=== PATIENT | female | born 1935 | race African-American/Black ===

== ENCOUNTER 2022-02-11 11:20 | Inpatient (IN) | payer OTHER ==
--- OUTSIDE RECORDS SUMMARY | 2022-02-11 11:25 | XMS REPORT | Continuity of Care Document ---
:1935 Author Organization [facility] t Address [address] [place] [address] Care Team Providers Name Role Phone Rafa Clark DO Primary Care Physician [phone] Payers Payer Name Policy Type Policy Number Effective Date Expiration Date S ource Problems Condition Condition Condition Status Onset Resolution Last Treating Co mments Source Name Details Category Date Date Treatment Clinician Date No known No known Disease Metho di active active st problems problems Hospit a l Allergies, Adverse Reactions, Alerts Allergy Allergy Status Severity Reaction(s) Onset Inactive Treating Comm ents Source Name Type Date Date Clinician No Known DA Active U 2020- [facility]- Clear s 00:00: [place] 00 [facility] No Known DA Active U 2020- [facility] Allergie 2- Clear s 00:00: [place] 00 [facility] No Known DA Active U 2020- [facility] Allergie 2- Clear s 00:00: [place] 00 [facility] No Known DA Active U 2020- [facility] Allergie 2- Clear s 00:00: [place] 00 [facility] Social History Social Habit Start Date Stop Date Quantity Comments Source History of Current smoker [facility] tobacco use [facility] Alcohol intake 2018-06-25 2018-06-25 [facility] 00:00:00 [facility]:00:00 Hospital Tobacco use and 2018-06-24 2018-06-24 Smokeless tobacco [facility] exposure 00:00:00 00:00:00 non-user Hospital Sex Assigned At [birth year] [facility] 00:00:00 00:[facility]:00 Hospital Smoking Status Start Date Stop Date Source Ex-smoker 2018-06-24 00:00:00 2018-06-24 [facility] Medications Ordered Filled Start Stop Current Ordering Indication Dosage Frequency Signature Comments Components Source Medication Medication Date Date Medication? Clinician (SIG) Name Name amLODIPine Yes 5mg QD Take 5 mg Me thodi (NORVASC) 5 -[address] mg tablet 17:34: daily. Hospit a 18 l aspirin 81 Yes 81mg QD Take 81 mg M ethodi mg chewable -[address] tablet 17:34: daily. Hospita 18 l bisacodyl 5 Yes 10mg QD Take 10 mg [facility] mg tablet -[address] 17:34: daily. Hospita 18 Takes 5 mg l 2 TABS. (10 mg) clonIDINE Yes .3mg QD Take 0.3 Meth booker HCl 1-[address] (CATAPRES) 17:34: mouth Hospit a 0.3 MG 18 every l tablet morning. clonIDINE 2019- Yes .3mg Q.5D Take 0.3 Meth booker HCl 1-[address] (CATAPRES) 17:34: mouth 2 Hosp mike 0.3 MG 18 (two) l tablet times a day as needed for high blood pressure (BP>140). carvedilol Yes 25mg Q.5D Take 25 mg M ethodi (COREG) 25 1-[address] MG tablet 17:34: (two) Hospita 18 times a l day as needed (BP>140). cranberry 2018- Yes 1{tbl} QD Take 1 Meth booker fruit 1-[address] extract 17:34: mouth Hospita (CRANBERRY 18 daily. l ORAL) folic 2018-0 Yes 1{tbl} QD Take 1 [facility]i acid/vit B 1-[address] complex and 17:34: mouth Hospi ta C 18 daily. l (DIALYVITE 800 ORAL) lactulose Yes 10g Q24H Take 10 g Met hodi 10 gram/15 -[address] mL (15 mL) 17:34: daily as Hos quiana solution 18 needed l (constipat ion). furosemide 0 Yes 40mg QD Take 40 mg M ethodi (LASIX) 40 1-[address] mg tablet 17:34: daily. Hospit a 18 l lisinopril Yes 40mg QD Take 40 mg M ethodi (PRINIVIL,Z 1-[address] ESTRIL) 40 17:34: every Hospit a mg tablet 18 morning. l sevelamer Yes 800mg Q.[id number] Take 800 [facility] (RENVELA) 1-[id number] 800 mg 17:34: 3D mouth 3 Hospita tablet 18 (three) l times a day with meals. lidocaine-p Yes 1{appli Q.[id number] Apply 1 Methodi rilocaine 1-17 cation} [id number] applicatio st (EMLA) 17:34: 3W n Hospita 2.5-2.5 % 18 topically l cream 3 (three) times a week. Tues., Thurs., Sat. Before dialysis amino 0 Yes 30mL QD Take 30 mL Method i ac/protein 1-[address] hydr/whey 17:34: daily. 1 Hosp mike pro 18 oz (30 ml) l (LIQUACEL ORAL) allopurinol Yes 100mg QD Take 100 M ethodi (ZYLOPRIM) 1-[address] 100 MG 17:34: mouth Hospita tablet 18 daily. l Procedures Procedure Date / Time Performed Performing Clinician [facility] e [id number] 2020-06-05 00:00:00 ACHKA [facility] [id number] 2020-06-02 00:00:00 RATVI [facility] [id number] 2020-06-02 00:00:00 RATVI [facility] [id number] 2020-06-02 00:00:00 RATVI [facility] [id number] 2020-06-02 00:00:00 RATVI [facility] [id number] 2020-06-02 00:00:00 RATVI [facility] [id number] 2020-06-02 00:00:00 RATVI [facility] [id number] 2020-06-02 00:00:00 ACHKA [facility] [id number] 2020-05-30 00:00:00 CHEZU [facility] [id number] 2020-05-30 00:00:00 CHEZU [facility] [id number] 2020-05-30 00:00:00 CHEZU [facility] Plan of Care Planned Activity Planned Date Details Comments Source Future Scheduled 2022-02-11 HEPATITIS B VACCINES Met [facility] Test 11:24:06 (1 of 3 - 3-dose series) [code = HEPATITIS B VACCINES (1 of 3 - 3-dose series)] Future Scheduled 2022-02-11 COVID-19 VACCINE (#1) [facility] Test 11:24:06 [code = COVID-19 VACCINE (#1)] Future Scheduled 2022-02-11 SHINGLES VACCINES ([address] [facility] Test 11:24:06 of 2) [code = SHINGLES VACCINES (1 of 2)] Future Scheduled 2022-02-11 65+ [facility]06 VACCINE (1 - PCV) [code = 65+ PNEUMOCOCCAL VACCINE (1 - PCV)] Future Scheduled 2022-02-11 INFLUENZA VACCINE Method [facility] Test 11:24:06 [code = INFLUENZA VACCINE] Encounters Start End Encounter Admission Attending Care Care Encounter Source Date/Time Date/Time Type Type Clinicians Facility Department ID 2020-05-28 Inpatient HCACL YAN [id number] [facility] 18:40:00 [id number] [facility] Results Test Description Test Time Test Comments Results Result Comments Source SURGICAL PATH SPECIMENS 2020-06-16 10:34:00 Test Item Value Reference Range Interpretation Comme nts SURGICAL RUN PATH DATE: 06/16/20 Jaime RIVERS *LIVE* PAGE 1 RUN TIME: 1034 Specimen Inquiry RUN USER: INTERFACE SPECIMENS ADONAY (test code NT: JENNY BAEZ LOC: [facility] U #: [id number] AGE/SX: 85/F ROOM: [facility] = SURG) RE05/28/20REG DR: Pepe Riley MD : [birth year] BED: 1 DIS: 06/05/20 STATUS: DIS IN TLOC: SPEC #: [id number] RECD: STATUS: SIMONE REQ #: [id number] EARLE: 06/04/20- [address]: Pepe Dominguez MD ENTERED: 06/15/20 SP TYPE: SURG SPEC OTHR DR: No Primary or Family Physician Self Referred Tara Salvador MD,Johan Carey,Karel Negron,Sven Manuel MD DPMORDERED: GROSS AND MICRO CODES: [id number] - FOOT, NOS [id number] - TOE, NOS COPIES TO: No Primary or Family Physician Self Referred Tara Bullard MD [address] [place] [address] [place] [address] [facility] [address] [place] [address] Karel Juan MD [address] [facility] [address] [place] [address] Gama Negron MD [address] [place] [address] Sabine Dominguez MD [address] [place] [address] CONTINUED ON NEXT PAGE RUN DATE: 06/16/20 Jaime RIVERS *LIVE* PAGE 2 RUN TIME: 1034 Specimen Inquiry RUN USER: INTERFACE SPEC #: [id number] PATIENT: LUISJAREDJENNY #[id number] (Continued) ------ COPIES TO: (Continued ) Sven ZhengM [address] [place] [address] PROCEDURES: RJ SS AND MICRO (Incomplete) TISSUES: 1. FOOT, NOS - Extremity, right forefoot, amputation 2. TOE, NOS - Bone, right, metatarsal margin, segment FINAL DIAGNOSIS Extremity, right forefoot, a mputation: Gangrenous necrosis; skin and soft tissue at resection margin appear viable; bone s hows no significant inflammation. Bone, right, metatarsal margin, segment: Bony tissue, withou t significant inflammation. GROSS AND MICROSCOPIC GROSS EXAMINATION: Received the specimen as gopi ignated above and it consists of one segment of forefoot measuring 8.9 x 8.5 x 3.4 cm with 5 di gits and with extensive gangrenous necrosis. Sections are submitted as (A)-skin and soft tissue margin; necrotic edge (B). The bone is submitted after decal. Specimen #2 shows 4 segments of bony tissue measuring 3.1 cm in largest dimension in aggregate. Entirely submitted after dec al (C). MICROSCOPIC EXAMINATION: Specimen #1 shows necrosis, acute and chronic inflammation. Th e skin and soft tissue margin appear viable and without significant inflammation. Sections of th e bone reveal no significant inflammation. The second specimen reveals a bony tissue withou t significant inflammation. POST-OP DIAGNOSIS Right foot gangrene PRE-OP DIAGNOSIS Right foot gangrene CONTINUED ON N EXT PAGE RUN DATE: 06/16/20 Jaime RIVERS *LIVE* PAGE 3 RUN TIME: 1034 Specimen Inquiry RUN USER: INTERFACE SPEC #: [id number] PATIENT: JENNY BAEZ #[id number] (Continued) ------ Signed SIGNATURE ON FILE Denise Calderon MD 06/16/20 1034 END OF REPORT CBC W/AUTO [id number] 08:06:00 Test Item Value Reference Range Interpretation Comments WHITE BLOOD CELL (test code = 9.0 x10 3/uL 4.5-11.0 N WBC) RED BLOOD CELL (test code = 3.66 x10 6/uL 3.54-5.02 N RBC) HEMOGLOBIN (test code = HGB) 8.8 g/dL 11.0-15.0 L HEMATOCRIT (test code = HCT) 29.8 % 33.0-45.0 L MEAN CELL VOLUME (test code = 81.4 fL 81.0-99.0 N MCV) MEAN CELL HGB (test code = MCH) 24.0 pg 27.0-33.0 L MEAN CELL HGB CONCETRATION 29.5 g/dL 33.0-37.0 L (test code = MCHC) RED CELL DISTRIBUTION WIDTH CV 15.0 % 11.5-14.5 H (test code = RDW) RED CELL DISTRIBUTION WIDTH SD 44.3 fL 37.0-54.0 N (test code = RDW-SD) PLATELET COUNT (test code = 308 x10 3/uL 150-400 N PLT) MEAN PLATELET VOLUME (test code 11.2 fL 7.0-9.0 H = MPV) NEUTROPHIL % (test code = NT%) 66.2 % 56.0-77.0 N IMMATURE GRANULOCYTE % (test 0.4 % 0.0-2.0 N code = IG%) LYMPHOCYTE % (test code = LY%) 23.9 % 14.0-32.0 N MONOCYTE % (test code = MO%) 7.0 % 4.8-9.0 N EOSINOPHIL % (test code = EO%) 2.1 % 0.3-3.7 N BASOPHIL % (test code = BA%) 0.4 % 0.0-2.0 N NUCLEATED RBC % (test code = 0.0 % 0-0 N NRBC%) NEUTROPHIL # (test code = NT#) 5.95 x10 3/uL 2.0-7.6 N IMMATURE GRANULOCYTE # (test 0.04 x10 3/uL 0.00-0.03 H code = IG#) LYMPHOCYTE # (test code = LY#) 2.15 x10 3/uL 1.0-3.8 N MONOCYTE # (test code = MO#) 0.63 x10 3/uL 0.1-0.8 N EOSINOPHIL # (test code = EO#) 0.19 x10 3/uL 0.0-0.2 N BASOPHIL # (test code = BA#) 0.04 x10 3/uL 0.0-0.2 N NUCLEATED RBC # (test code = 0.00 x10 3/uL 0.0-0.1 N NRBC#) MANUAL DIFF REQUIRED (test code NO = MDIFF) BASIC METABOLIC [id number] 07:44:00 Test Item Value Reference Range Interpretation Comments SODIUM (test code = NA) 138 mEq/L 134-147 N POTASSIUM (test code = 4.7 mEq/L 3.4-5.0 N K) CHLORIDE (test code = 100 mEq/L 100-108 N CL) CARBON DIOXIDE (test 24 mEq/l 21-33 N code = CO2) ANION GAP (test code = 19 0-20 N GAP) GLUCOSE (test code = 71 mg/dL 70-110 N GLU) BLOOD UREA NITROGEN 40 mg/dL 7-18 H (test code = BUN) GLOMERULAR FILTRATION 5.0 70-80 L Units of measure = RATE (test code = GFR) ml/mi n/1.73 m2 CREATININE (test code = 9.0 mg/dL 0.6-1.3 H CREAT) CALCIUM (test code = 8.6 mg/dL 8.0-10.5 N CA) [id number] 07:44:00 Test Item Value Reference Range Interpretation Comments PHOSPHOROUS (test code = PHOS) 5.4 MG/DL 2.5-4.9 H [id number] 07:44:00 Test Item Value Reference Range Interpretation Comments MAGNESIUM (test code = MAG) 2.04 mg/dL 1.80-2.40 N CBC W/AUTO [id number] 07:24:00 Test Item Value Reference Range Interpretation Comments WHITE BLOOD CELL (test code = x10 3/uL 4.5-11.0 WBC) RED BLOOD CELL (test code = RBC) x10 6/uL 3.54-5.02 HEMOGLOBIN (test code = HGB) g/dL 11.0-15.0 HEMATOCRIT (test code = HCT) % 33.0-45.0 MEAN CELL VOLUME (test code = fL 81.0-99.0 MCV) MEAN CELL HGB (test code = MCH) pg 27.0-33.0 MEAN CELL HGB CONCETRATION (test g/dL 33.0-37.0 code = MCHC) RED CELL DISTRIBUTION WIDTH CV % 11.5-14.5 (test code = RDW) PLATELET COUNT (test code = PLT) 308 x10 3/uL 150-400 N NEUTROPHIL % (test code = NT%) % 56.0-77.0 LYMPHOCYTE % (test code = LY%) % 14.0-32.0 NEUTROPHIL # (test code = NT#) x10 3/uL 2.0-7.6 LYMPHOCYTE # (test code = LY#) x10 3/uL 1.0-3.8 MANUAL DIFF REQUIRED (test code = MDIFF) - XR FOOT 3 + V [id number] 16:28:00 [facility] 1935 Sex: F FAX: Johan Sanchez [phone] [place]: St: ADM FAX: Pepe Dominguez MD [phone] FAX: Sven Zheng [phone] Name: JENNY BAEZ [facility] : 1935 Age/S: 85/F [address] [place] [address] Unit #: [id number] Loc: G.55[address] [place] [address] Phys: Sven Zheng Acct: [id number] Dis Date:Status: ADM IN PHONE #: [phone] Exam Date: 06/02/2020 1036 FAX #: [phone] Reason: s/p right TMA EXAMS: CPT CODE: [id number] XR FOOT 3 + [place] 6[address]37 Right foot 3 view HISTORY: Osteomyelitis right foot, postop. Comparison made to 05/28/20 right foot series. FINDINGS: There has been interval transmetatarsal right foot amputation. No acute fracture or bony destruction. Bones are osteopenic. Spleen material is in place. IMPRESSION: Interval right foot transmetatarsal amputation. SL:01 at 1628 Reported and signed by: James Dawn M.D. 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 Boni t performance dep ends on theamount of vi ann (antigen) in th e sample.This boni t has not been FDA cleare d or approved; the t est hasbeen authori zed by FDA under an Em ergency Use Authorizati on(EUA) for use by labo ratories certified under the CLIA thatmeet the requirements to perform moderate, high or waivedcomplexit y tests. BASIC METABOLIC [id number] 04:42:00 Test Item Value Reference Range Interpretation Comments SODIUM (test code = NA) 139 mEq/L 134-147 N POTASSIUM (test code = 4.0 mEq/L 3.4-5.0 N K) CHLORIDE (test code = 102 mEq/L 100-108 N CL) CARBON DIOXIDE (test 25 mEq/l 21-33 N code = CO2) ANION GAP (test code = 16 0-20 N GAP) GLUCOSE (test code = 83 mg/dL 70-110 N GLU) BLOOD UREA NITROGEN 30 mg/dL 7-18 H (test code = BUN) GLOMERULAR FILTRATION 6.2 70-80 L Units of measure = RATE (test code = GFR) ml/mi n/1.73 m2 CREATININE (test code = 7.5 mg/dL 0.6-1.3 H CREAT) CALCIUM (test code = 8.0 mg/dL 8.0-10.5 N CA) [id number] 04:42:00 Test Item Value Reference Range Interpretation Comments PHOSPHOROUS (test code = PHOS) 4.8 MG/DL 2.5-4.9 N [id number] 04:42:00 Test Item Value Reference Range Interpretation Comments MAGNESIUM (test code = MAG) 1.91 mg/dL 1.80-2.40 N CBC W/AUTO [id number] 04:19:00 Test Item Value Reference Range Interpretation Comments WHITE BLOOD CELL (test code = 7.7 x10 3/uL 4.5-11.0 N WBC) RED BLOOD CELL (test code = 3.97 x10 6/uL 3.54-5.02 N RBC) HEMOGLOBIN (test code = HGB) 9.4 g/dL 11.0-15.0 L HEMATOCRIT (test code = HCT) 32.2 % 33.0-45.0 L MEAN CELL VOLUME (test code = 81.1 fL 81.0-99.0 N MCV) MEAN CELL HGB (test code = MCH) 23.7 pg 27.0-33.0 L MEAN CELL HGB CONCETRATION 29.2 g/dL 33.0-37.0 L (test code = MCHC) RED CELL DISTRIBUTION WIDTH CV 15.4 % 11.5-14.5 H (test code = RDW) RED CELL DISTRIBUTION WIDTH SD 44.7 fL 37.0-54.0 N (test code = RDW-SD) PLATELET COUNT (test code = 277 x10 3/uL 150-400 N PLT) MEAN PLATELET VOLUME (test code 10.6 fL 7.0-9.0 H = MPV) NEUTROPHIL % (test code = NT%) 61.6 % 56.0-77.0 N IMMATURE GRANULOCYTE % (test 0.4 % 0.0-2.0 N code = IG%) LYMPHOCYTE % (test code = LY%) 27.6 % 14.0-32.0 N MONOCYTE % (test code = MO%) 7.4 % 4.8-9.0 N EOSINOPHIL % (test code = EO%) 2.3 % 0.3-3.7 N BASOPHIL % (test code = BA%) 0.7 % 0.0-2.0 N NUCLEATED RBC % (test code = 0.0 % 0-0 N NRBC%) NEUTROPHIL # (test code = NT#) 4.73 x10 3/uL 2.0-7.6 N IMMATURE GRANULOCYTE # (test 0.03 x10 3/uL 0.00-0.03 N code = IG#) LYMPHOCYTE # (test code = LY#) 2.12 x10 3/uL 1.0-3.8 N MONOCYTE # (test code = MO#) 0.57 x10 3/uL 0.1-0.8 N EOSINOPHIL # (test code = EO#) 0.18 x10 3/uL 0.0-0.2 N BASOPHIL # (test code = BA#) 0.05 x10 3/uL 0.0-0.2 N NUCLEATED RBC # (test code = 0.00 x10 3/uL 0.0-0.1 N NRBC#) MANUAL DIFF REQUIRED (test code NO = MDIFF) CBC W/AUTO [id number] 04:15:00 Test Item Value Reference Range Interpretation Comments WHITE BLOOD CELL (test code = x10 3/uL 4.5-11.0 WBC) RED BLOOD CELL (test code = RBC) x10 6/uL 3.54-5.02 HEMOGLOBIN (test code = HGB) g/dL 11.0-15.0 HEMATOCRIT (test code = HCT) % 33.0-45.0 MEAN CELL VOLUME (test code = fL 81.0-99.0 MCV) MEAN CELL HGB (test code = MCH) pg 27.0-33.0 MEAN CELL HGB CONCETRATION (test g/dL 33.0-37.0 code = MCHC) RED CELL DISTRIBUTION WIDTH CV % 11.5-14.5 (test code = RDW) PLATELET COUNT (test code = PLT) 277 x10 3/uL 150-400 N NEUTROPHIL % (test code = NT%) % 56.0-77.0 LYMPHOCYTE % (test code = LY%) % 14.0-32.0 NEUTROPHIL # (test code = NT#) x10 3/uL 2.0-7.6 LYMPHOCYTE # (test code = LY#) x10 3/uL 1.0-3.8 MANUAL DIFF REQUIRED (test code = MDIFF) ACUTE HEPATITIS [id number] 08:51:00 Test Item Value Reference Range Interpretation Comments AB HEPATITIS A IGM (test NON REACTIVE INDEX NON REACT. code = HAVMAB) AG HEPATITIS B SURFACE NON REACTIVE INDEX NonReactive (test code = HBSAG) AB HEPATITIS B CORE IGM NON REACTIVE INDEX NON REACT. (test code = HBCMAB) AB HEPATITIS C (test code NON REACTIVE INDEX NON REACT. = HCVAB) COMMENTS: At start of hemodialysis- MRI LOW EXT W/O CONT [id number] 19:09:00 [facility] : 1935 Sex: F FAX: Johan Sanchez [phone] [place]: St: [facility] FAX: Aidan Zavala [facility] [phone] FAX: Pepe Dominguez MD [phone] Name: JENNY BAEZ [facility] [place] : 1935 Age/S: 85/F [address] [place] [address] Unit #: [id number] Loc: G.5517 [place] [address] Phys: Aidan Nguyen DPNoris Acct: [id number] Dis Date: Status: ADM IN PHONE #: [phone] Exam Date: 05/30/2020 173 FAX #: [phone] Reason: GANGRENE EXAMS: CPT CODE: [id number] MRI LOW EXT W/[place] [address] MRI right foot without contrast. INDICATION: Foot gangrene. Sepsis. Osteomyelitis. COMPARISON: 05/28/2020 radiographs. TECHNIQUE: MRI of the forefoot is performed with triplanar T1 and fluid sensitive sequences. No contrast. FINDINGS: Motion artifact limits evaluation. Low signal artifact is present in the distal aspect of the great toe likely correlating with soft tissue gas seen on radiographs. This limits evaluation of the distal phalanx which is destroyed on the radiographs consistent with osteomyelitis. A small complex heterogeneous first metatarsophalangeal joint effusion is present with abnormal marrow signal in the base of the proximal phalanx with T1 hypointense T2 hyperintense signal change. T1 hypointense T2 hyperintense erosions are seen in the first metatarsal head both medially and laterally. T1 hypointense T2 hyperintense marrow signal is seen in the distal second and third metatarsal bones as well as the phalanges. T1 hypointense T2 hyperintense marrow signal change is present in the fourth proximal phalanx and distal phalanx with sparing of the middle phalanx. The mid and distal fifth metatarsal bone demonstrate T2 hyperintense T1 hypointense marrow signal. Probable reactive marrow edema in the phalanges of the fifth toe without definite abnormal T1 signal. A component of muscle atrophy is present. No organized drainable T2 hyperintense fluid collections are seen. The distal tendons in the great toe are obscured by artifact. IMPRESSION: 1. Findings consistent with osteomyelitis of the first distal phalanx. 2. First metatarsophalangeal complex joint effusion with erosions of the metatarsal head and abnormal signal in the base of the proximal phalanx which may suggest septic arthritis and osteomyelitis. PAGE 1 Signed Report (CONTINUED) FAX: Johan Sanchez [phone] [place]: St: ADM FAX: Venkatesh Zavala DPM [phone] FAX: Pepe Dominguez MD [phone] Name: JENNY BAEZ [facility] : 1935 Age/S: 85/F [address] [place] [address] Unit #: [id number] Loc: G.[address] [place] [address] Phys: Aidan Nguyen DPM Acct: [id number] Dis Date: Status: ADM IN PHONE #: [phone] Exam Date: 05/30/2020 173 FAX #: [phone] Reason: GANGRENE EXAMS: CPT CODE: [id number] MRI LOW EXT W/[place] [address] (Continued) Inflammatory arthropathy is not excluded. 3. Abnormal marrow signal in the distal second and third metat arsal bones and the phalanges is nonspecific and may be consistent with osteomyelitis. Some of this could be artifactual in nature due to incomplete fat saturation. Stress reaction/fracture and bone infarcts could also be considered. 4. Abnormal marrow signal in the fourth proximal phalanx likely related to bone infarct and/or nondisplaced fracture. 5. Abnormal marrow signal in the distal fifth metatarsal bone. Stress reaction/fracture or healing nondisplaced fracture is favored. 6. Limited study. SL: MAYRA at 1909 Reported and signed by: Luis Martinez M.D. 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 Prophylax is of venous thrombos is 2.0 - 3.0 (orthoped ic surgery), Proph ylaxis of venous throm bosis (other than hig h-risk surgery), Treat ment of Deep Vein Thrombosis/Pulm onary Embolism, Preve ntion of systemic emb olism - Tissue heart va lves, Acute Myocardia l Infarction (to prevent systemic emboli sm), Valvular heart disease, Atrial Fibrillation, Bileaflet mecha nical valve in aortic position.2. Mec hanical prosthetic valv es (high risk), 2. 5 - 3.5 Presence of Lup us Anticoagulant o r Antiphospholipi d Antibodies, Pre vention of systemic emb olism - Acute Myocardia l Infarction (to prevent recurrent infar ct). THROMBOPLASTIN TIME [id number] 11:23:00 Test Item Value Reference Range Interpretation Comments THROMBOPLASTIN TIME 23.6 Seconds 25.0-39.5 L Therape utic Range: PARTIAL (test code = 50.4 - 88.3 Seconds PTT) Effective 09/21/2018 CBC W/AUTO [id number] 11:19:00 Test Item Value Reference Range Interpretation Comments WHITE BLOOD CELL (test code = 7.2 x10 3/uL 4.5-11.0 N WBC) RED BLOOD CELL (test code = 4.11 x10 6/uL 3.54-5.02 N RBC) HEMOGLOBIN (test code = HGB) 9.9 g/dL 11.0-15.0 L HEMATOCRIT (test code = HCT) 33.3 % 33.0-45.0 N MEAN CELL VOLUME (test code = 81.0 fL 81.0-99.0 N MCV) MEAN CELL HGB (test code = MCH) 24.1 pg 27.0-33.0 L MEAN CELL HGB CONCETRATION 29.7 g/dL 33.0-37.0 L (test code = MCHC) RED CELL DISTRIBUTION WIDTH CV 15.3 % 11.5-14.5 H (test code = RDW) RED CELL DISTRIBUTION WIDTH SD 44.4 fL 37.0-54.0 N (test code = RDW-SD) PLATELET COUNT (test code = 304 x10 3/uL 150-400 N PLT) MEAN PLATELET VOLUME (test code 10.5 fL 7.0-9.0 H = MPV) NEUTROPHIL % (test code = NT%) 67.8 % 56.0-77.0 N IMMATURE GRANULOCYTE % (test 0.4 % 0.0-2.0 N code = IG%) LYMPHOCYTE % (test code = LY%) 22.0 % 14.0-32.0 N MONOCYTE % (test code = MO%) 7.5 % 4.8-9.0 N EOSINOPHIL % (test code = EO%) 1.7 % 0.3-3.7 N BASOPHIL % (test code = BA%) 0.6 % 0.0-2.0 N NUCLEATED RBC % (test code = 0.0 % 0-0 N NRBC%) NEUTROPHIL # (test code = NT#) 4.91 x10 3/uL 2.0-7.6 N IMMATURE GRANULOCYTE # (test 0.03 x10 3/uL 0.00-0.03 N code = IG#) LYMPHOCYTE # (test code = LY#) 1.59 x10 3/uL 1.0-3.8 N MONOCYTE # (test code = MO#) 0.54 x10 3/uL 0.1-0.8 N EOSINOPHIL # (test code = EO#) 0.12 x10 3/uL 0.0-0.2 N BASOPHIL # (test code = BA#) 0.04 x10 3/uL 0.0-0.2 N NUCLEATED RBC # (test code = 0.00 x10 3/uL 0.0-0.1 N NRBC#) MANUAL DIFF REQUIRED (test code NO = MDIFF) BASIC METABOLIC [id number] 08:31:00 Test Item Value Reference Range Interpretation Comments SODIUM (test code = NA) 136 mEq/L 134-147 N POTASSIUM (test code = 3.9 mEq/L 3.4-5.0 N K) CHLORIDE (test code = 102 mEq/L 100-108 N CL) CARBON DIOXIDE (test 26 mEq/l 21-33 N code = CO2) ANION GAP (test code = 12 0-20 N GAP) GLUCOSE (test code = 80 mg/dL 70-110 N GLU) BLOOD UREA NITROGEN 31 mg/dL 7-18 H (test code = BUN) GLOMERULAR FILTRATION 7.0 70-80 L Units of measure = RATE (test code = GFR) ml/mi n/1.73 m2 CREATININE (test code = 6.8 mg/dL 0.6-1.3 H CREAT) CALCIUM (test code = 9.4 mg/dL 8.0-10.5 N CA) COVID 19 Asymptomatic IH [id number] 22:53:00 Test Item Value Reference Range Interpretation Comments COVID 19 Asymptomatic Negative Negative A nega tive result is IH AG (test code = presumpti ve and should COVNONPUIAG) be confirmedwit h an FDA authorized mole cular assay, if neces brittaney forpatient allen gement.A positive result does not rule out co-inf ections withother patho gens.This test detects tien th viable (live) and non-viable,SARS -CoV, and SARS-CoV-2. Boni t performance dep ends on theamount of vi ann (antigen) in th e sample.This boni t has not been FDA cleare d or approved; the t est hasbeen authori zed by FDA under an Em ergency Use Authorizati on(EUA) for use by labo ratories certified under the CLIA thatmeet the requirements to perform moderate, high or waivedcomplexit y tests. COMMENTS: If not done this admission- XR CHEST 1 [id number] 21:02:00 [facility] : 1935 Sex: F FAX: Yovanny Watters [phone] [place]: St: [facility] FAX: Johan Sanchez [phone] FAX: Pepe Dominguez MD [phone] Name: JENNY BAEZ [facility] : 1935 Age/S: 85/F [address] [place] [address] Blvd Unit #: [id number] Loc: G.[id number] [place] [address] Phys: Yovanny Watters CRNA Acct: [id number] Dis Date: Status: ADM IN PHONE #: [phone] Exam Date: 05/29/20202057 FAX #: [phone] Reason: Preop E XAMS: CPT CODE: [id number] XR CHEST 1 V 58132 Portable single view AP chest INDICATION: Preop right foot osteomyelitis. Comparison: None. FINDINGS: The cardiomediastinal silhouette is within normal limits for size with heavily calcified aorta. Lungs are well inflated and clear. The costophrenic angles are sharp. Bilateral subclavian and axillary vascular calcifications are seen. No acute bony finding.IMPRESSION: 1. No acute or active pulmonary findings. 2. Heavy vascular calcifications. SL: MAYRA at 2102 Reported and signed by: Luis Martinez M.D. CC: Yovanny Watters CRNA; Johan Sanchez DO; Pepe Dominguez MD Technologist: Bouchra Ibanez RT(R) Trnscrd Date/Time/By: 05/29/2020 (2101) : By: [email or web address] Orig Print D/T: S: 05/29/2020 (2104) PAGE 1 Signed ReportSED RATE [id number] 10:57:00 Test Item Value Reference Range Interpretation Comments SED RATE WESTERGREN (test code = 18 mm/hr 0-20 N SEDW) C REACTIVE [id number] 10:42:00 Test Item Value Reference Range Interpretation Comments C REACTIVE PROTEIN (test code = 19.0 mg/L <10.0 H CRP) BASIC METABOLIC [id number] 07:37:00 Test Item Value Reference Range Interpretation Comments SODIUM (test code = NA) 139 mEq/L 134-147 N POTASSIUM (test code = 3.4 mEq/L 3.4-5.0 N K) CHLORIDE (test code = 102 mEq/L 100-108 N CL) CARBON DIOXIDE (test 27 mEq/l 21-33 N code = CO2) ANION GAP (test code = 13 0-20 N GAP) GLUCOSE (test code = 87 mg/dL 70-110 N GLU) BLOOD UREA NITROGEN 16 mg/dL 7-18 (test code = BUN) GLOMERULAR FILTRATION 10.2 70-80 L Units of measure = RATE (test code = GFR) ml/mi n/1.73 m2 CREATININE (test code = 4.9 mg/dL 0.6-1.3 H CREAT) CALCIUM (test code = 8.6 mg/dL 8.0-10.5 N CA) CBC W/AUTO [id number] 06:32:00 Test Item Value Reference Range Interpretation Comments WHITE BLOOD CELL (test code = x10 3/uL 4.5-11.0 WBC) RED BLOOD CELL (test code = RBC) x10 6/uL 3.54-5.02 HEMOGLOBIN (test code = HGB) g/dL 11.0-15.0 HEMATOCRIT (test code = HCT) % 33.0-45.0 MEAN CELL VOLUME (test code = fL 81.0-99.0 MCV) MEAN CELL HGB (test code = MCH) pg 27.0-33.0 MEAN CELL HGB CONCETRATION (test g/dL 33.0-37.0 code = MCHC) RED CELL DISTRIBUTION WIDTH CV % 11.5-14.5 (test code = RDW) PLATELET COUNT (test code = PLT) 302 x10 3/uL 150-400 N NEUTROPHIL % (test code = NT%) % 56.0-77.0 LYMPHOCYTE % (test code = LY%) % 14.0-32.0 NEUTROPHIL # (test code = NT#) x10 3/uL 2.0-7.6 LYMPHOCYTE # (test code = LY#) x10 3/uL 1.0-3.8 MANUAL DIFF REQUIRED (test code = MDIFF) CBC W/AUTO [id number] 06:32:00 Test Item Value Reference Range Interpretation Comments WHITE BLOOD CELL (test code = 8.3 x10 3/uL 4.5-11.0 N WBC) RED BLOOD CELL (test code = 4.02 x10 6/uL 3.54-5.02 N RBC) HEMOGLOBIN (test code = HGB) 9.9 g/dL 11.0-15.0 L HEMATOCRIT (test code = HCT) 32.6 % 33.0-45.0 L MEAN CELL VOLUME (test code = 81.1 fL 81.0-99.0 N MCV) MEAN CELL HGB (test code = MCH) 24.6 pg 27.0-33.0 L MEAN CELL HGB CONCETRATION 30.4 g/dL 33.0-37.0 L (test code = MCHC) RED CELL DISTRIBUTION WIDTH CV 15.7 % 11.5-14.5 H (test code = RDW) RED CELL DISTRIBUTION WIDTH SD 45.7 fL 37.0-54.0 N (test code = RDW-SD) PLATELET COUNT (test code = 302 x10 3/uL 150-400 N PLT) MEAN PLATELET VOLUME (test code 10.8 fL 7.0-9.0 H = MPV) NEUTROPHIL % (test code = NT%) 71.5 % 56.0-77.0 N IMMATURE GRANULOCYTE % (test 0.2 % 0.0-2.0 N code = IG%) LYMPHOCYTE % (test code = LY%) 18.7 % 14.0-32.0 N MONOCYTE % (test code = MO%) 8.0 % 4.8-9.0 N EOSINOPHIL % (test code = EO%) 1.2 % 0.3-3.7 N BASOPHIL % (test code = BA%) 0.4 % 0.0-2.0 N NUCLEATED RBC % (test code = 0.0 % 0-0 N NRBC%) NEUTROPHIL # (test code = NT#) 5.91 x10 3/uL 2.0-7.6 N IMMATURE GRANULOCYTE # (test 0.02 x10 3/uL 0.00-0.03 N code = IG#) LYMPHOCYTE # (test code = LY#) 1.55 x10 3/uL 1.0-3.8 N MONOCYTE # (test code = MO#) 0.66 x10 3/uL 0.1-0.8 N EOSINOPHIL # (test code = EO#) 0.10 x10 3/uL 0.0-0.2 N BASOPHIL # (test code = BA#) 0.03 x10 3/uL 0.0-0.2 N NUCLEATED RBC # (test code = 0.00 x10 3/uL 0.0-0.1 N NRBC#) MANUAL DIFF REQUIRED (test code NO = MDIFF) LACTIC ACID 2ND [id number] 00:20:00 Test Item Value Reference Range Interpretation Comments LACTIC ACID 2ND REPEAT (test code 1.8 mmol/L 0.4-1.9 N = LACT2) LACTIC ACID [id number] 22:22:00 Test Item Value Reference Range Interpretation Comments LACTIC ACID REPEAT (test code = 3.6 mmol/l 0.4-1.9 H LACTR) - [facility] UE ART [id number] 20:46:00 [facility] : 1935 Sex: F Name: JENNY BAEZ [facility] [place] : 1935 Age/S: 85 / F [address] [place] [address] Unit #: [id number] Loc: [place] [address] Phys: Sena Vidal Acct: [id number] Dis Date: Status: ADM IN PHONE #: [phone] Exam Date: 05/28/20202038 FAX #: [phone] Reason: GANGRENOUS TOES R FOOT EXAMS: CPT CODE: [id number] [facility] 61086 Right lower extremity arterial Doppler. INDICATION:Gangrenous right foot toes. Infection. Right foot pain. COMPARISON: None. FINDINGS: The right commonfemoral artery demonstrates color flow and triphasic waveforms. Echogenic femoral artery stent is seen demonstrating good color flow and triphasic waveforms. Popliteal artery demonstrates biphasic wavef orms. The posterior tibial artery demonstrates little to no flow. The dorsalis pedis artery demonstrates little flow and monophasic waveforms. IMPRESSION: 1. Occluded right posterior tibial artery. 2. Dampened monophasic waveforms of the dorsalis pedis artery consistent with significant disease. 3. Patent right femoral artery stent. SL: SG-H at 2045 Reported and signed by: Luis Martinez M.D. CC: Sena Vidal Technologist: Emma French RDMS()(OB) Trnscb Date/Time: 05/28/2020 (2045) [email or web address] Orig Print D/T: S: 05/28/2020 (2048) Probe: PAGE 1 Signed ReportCOMPREHENSIVE METABOLIC [id number] 20:12:00 Test Item Value Reference Range Interpretation Comments SODIUM (test code = NA) 138 mEq/L 134-147 N POTASSIUM (test code = 3.1 mEq/L 3.4-5.0 L K) CHLORIDE (test code = 98 mEq/L 100-108 L CL) CARBON DIOXIDE (test 28 mEq/l 21-33 N code = CO2) ANION GAP (test code = 15 0-20 N GAP) GLUCOSE (test code = 114 mg/dL 70-110 H GLU) BLOOD UREA NITROGEN 11 mg/dL 7-18 N (test code = BUN) GLOMERULAR FILTRATION 12.1 70-80 L Units of measure = RATE (test code = GFR) ml/mi n/1.73 m2 CREATININE (test code = 4.2 mg/dL 0.6-1.3 H CREAT) TOTAL PROTEIN (test 7.7 g/dL 6.4-8.2 N code = PROT) ALBUMIN (test code = 4.20 g/dL 3.4-5.0 N ALB) CALCIUM (test code = 9.0 mg/dL 8.0-10.5 N CA) BILIRUBIN TOTAL (test 0.30 mg/dL 0.0-1.0 N code = BILT) SGOT/AST (test code = 23 IUnit/L 15-37 N AST) SGPT/ALT (test code = 9 IUnit/L 30-65 L ALT) ALKALINE PHOSPHATASE 196 IUnit/L 20-125 H TOTAL (test code = ALKP) - XR FOOT 3 + V [id number] 20:06:00 [facility] 1935 Sex: F FAX: Sena Vidal [phone] [place]: [address]: REG Name: JENNY BAEZ [facility] : 1935 Age/S: 85/F [address] [place] [address] Unit #: [id number] Loc: G.ERS3 [place] [address] Phys: Sena Vidal Acct: [id number] Dis Date: Status: REG ER PHONE #: [phone] Exam Date: 05/28/20201999 FAX #: [phone] Reason: INFECTION R FOOT EXAMS: CPT CODE: [id number] XR FOOT 3 + V [place] 58143 Three-view right foot. INDICATION: Right foot infection and pain. FINDINGS: No prior for comparison. There is limited visualization of the great toe due to overlying bandages and probable soft tissue gas. The bones in thefoot are demineralized also limiting evaluation. Lucent changes are seen in the first distal phalanx. Subtle lateral cortical lucency in the first proximal phalanx also seen. Small chronic appearing erosions are seen in the first metatarsal head. No acute fracture or dislocation is seen. Pes planus deformity is present. Vascular calcifications present. IMPRESSION: Findings suggesting osteomyelitis inthe first distal phalanx and possibly proximal phalanx. SL: SG-H at 2005 Reported and signed by: Luis Martinez M.D. CC: Sena Vidal Technologist: RT Tadeo(Andra) Trnscrd Date/Time/By: 05/28/2020 (2005) : By: [email or web address] Orig Print D/T: S: 05/28/2020 (2008) PAGE 1 Signed ReportCBC W/AUTO [id number] 20:03:00 Test Item Value Reference Range Interpretation Comments WHITE BLOOD CELL (test code = 8.7 x10 3/uL 4.5-11.0 N WBC) RED BLOOD CELL (test code = 4.63 x10 6/uL 3.54-5.02 N RBC) HEMOGLOBIN (test code = HGB) 11.1 g/dL 11.0-15.0 N HEMATOCRIT (test code = HCT) 38.0 % 33.0-45.0 N MEAN CELL VOLUME (test code = 82.1 fL 81.0-99.0 N MCV) MEAN CELL HGB (test code = MCH) 24.0 pg 27.0-33.0 L MEAN CELL HGB CONCETRATION 29.2 g/dL 33.0-37.0 L (test code = MCHC) RED CELL DISTRIBUTION WIDTH CV 15.6 % 11.5-14.5 H (test code = RDW) RED CELL DISTRIBUTION WIDTH SD 46.0 fL 37.0-54.0 N (test code = RDW-SD) PLATELET COUNT (test code = 385 x10 3/uL 150-400 N PLT) MEAN PLATELET VOLUME (test code 10.7 fL 7.0-9.0 H = MPV) NEUTROPHIL % (test code = NT%) 75.3 % 56.0-77.0 N IMMATURE GRANULOCYTE % (test 0.3 % 0.0-2.0 N code = IG%) LYMPHOCYTE % (test code = LY%) 17.6 % 14.0-32.0 N MONOCYTE % (test code = MO%) 6.0 % 4.8-9.0 N EOSINOPHIL % (test code = EO%) 0.5 % 0.3-3.7 N BASOPHIL % (test code = BA%) 0.3 % 0.0-2.0 N NUCLEATED RBC % (test code = 0.0 % 0-0 N NRBC%) NEUTROPHIL # (test code = NT#) 6.56 x10 3/uL 2.0-7.6 N IMMATURE GRANULOCYTE # (test 0.03 x10 3/uL 0.00-0.03 N code = IG#) LYMPHOCYTE # (test code = LY#) 1.53 x10 3/uL 1.0-3.8 N MONOCYTE # (test code = MO#) 0.52 x10 3/uL 0.1-0.8 N EOSINOPHIL # (test code = EO#) 0.04 x10 3/uL 0.0-0.2 N BASOPHIL # (test code = BA#) 0.03 x10 3/uL 0.0-0.2 N NUCLEATED RBC # (test code = 0.00 x10 3/uL 0.0-0.1 N NRBC#) MANUAL DIFF REQUIRED (test code NO = MDIFF) LACTIC [id number] 20:02:00 Test Item Value Reference Range Interpretation Comments LACTIC ACID (test code = LACT) 3.6 mmol/L 0.4-1.9 H - DUP VEIN [id number]/[id number] 19:57:00 [facility] : 1935 Sex: F Name: JENNY BAEZ [facility] [place] : 1935 Age/S: 85 / F [address] [place] [address] Unit #: [id number] Loc: [place] [address] Phys: Sena Vidal Acct: [id number] Dis Date: Status: REG ER PHONE #: [phone] Exam Date: 05/28/20201953 FAX #: [phone] Reason: PAIN RLE EXAMS: CPT CODE:[id number] DUP VEIN UNI/LTD 52528 PROCEDURE: UNILATERAL LOWER EXTREMITY VENOUS ULTRASOUND INDICATION:Right lower extremity pain. Infection. COMPARISON: None. TECHNIQUE: Sonographic evaluation of the right lower extremity veins was performed using high resolution B-mode, pulse and color Doppler imaging. FINDINGS: The common femoral, femoral, popliteal and visualized calf veins are patent. The saphenofe moral junction is unremarkable. Normal venous waveforms. IMPRESSION: No deep venous thrombosis. SL: SGAntioneH at 1956 Reported and signed by: Luis Martinez M.D. CC: Sena Vidal Technologist: Emma French RDMS(AB)(OB) Trnscb Date/Time: 05/28/2020 (1956) [email or web address] Orig Print D/T: S: 05/28/2020 (2000) Probe: PAGE 1 Signed ReportCBC W/AUTO [id number] 19:53:00 Test Item Value Reference Range Interpretation Comments WHITE BLOOD CELL (test code = x10 3/uL 4.5-11.0 WBC) RED BLOOD CELL (test code = RBC) x10 6/uL 3.54-5.02 HEMOGLOBIN (test code = HGB) 11.1 g/dL 11.0-15.0 N HEMATOCRIT (test code = HCT) 38.0 % 33.0-45.0 N MEAN CELL VOLUME (test code = fL 81.0-99.0 MCV) MEAN CELL HGB (test code = MCH) pg 27.0-33.0 MEAN CELL HGB CONCETRATION (test g/dL 33.0-37.0 code = MCHC) RED CELL DISTRIBUTION WIDTH CV % 11.5-14.5 (test code = RDW) PLATELET COUNT (test code = PLT) 385 x10 3/uL 150-400 N NEUTROPHIL % (test code = NT%) % 56.0-77.0 LYMPHOCYTE % (test code = LY%) % 14.0-32.0 NEUTROPHIL # (test code = NT#) x10 3/uL 2.0-7.6 LYMPHOCYTE # (test code = LY#) x10 3/uL 1.0-3.8 MANUAL DIFF REQUIRED (test code = MDIFF)
--- NOTE | 2022-02-11 14:14 | RAD REPORT ---
EXAM DESCRIPTION: CT - Head Brain Wo Cont - 02/11/2022 1:59 pm CLINICAL HISTORY: AMS COMPARISON: MRI BRAIN WITHOUT CONTRAST dated 11/15/2012 TECHNIQUE: All CT scans are performed using dose optimization technique as appropriate and may inclu de automated exposure control or mA/KV adjustment according to patient size. FINDINGS: Remote left parietal lobe infarct. Eccentric white matter hypoattenuation to the left cere bral hemisphere likely represents a combination of chronic small vessel ischemic changes and sequela of prior infarct. Tiny remote right cerebellar infarct. Cerebral atrophy. No mass effect or midline s hift. No hydrocephalus. No acute intracranial hemorrhage. Right mastoid fluid. The calvarium is intact. IMPRESSION: Remote left MCA territory infarct, some of which was previously identified on the MRI fr om 11/15/2012 and some has developed in the interim from that MRI. No evidence of an acute infarct ho wever MRI could further clarify if clinically indicated.
[2022-02-11] MEDS ORDERED: HYDRALAZINE HCL 20 MG/ML VIAL ONE (14:38)
[2022-02-11 14:43] LABS: Hematocrit 33.3 % (36.0-45.0); MCV 76.4 fL (80-100); MPV 8.1 fL (7.6-11.3); RBC Red Blood Cell Count 4.36 M/uL (3.86-4.86)
[2022-02-11 14:52] LABS: Protime INR 0.88
[2022-02-11 15:27] LABS: Blood Morphology Comment NOT SEEN (NOT SEEN); Platelet Estimate INCR; Platelets, Giant PRESENT
[2022-02-11 15:28] LABS: Absolute Lymphocytes (CBC) 2.2 K/uL (0.7-4.9); Albumin 3.1 g/dL (3.4-5.0); Phosphorus 4.3 mg/dL (2.5-4.9)
[2022-02-11 15:33] LABS: SARS-CoV-2 Antigen Rapid Res Negative (Negative)
--- NOTE | 2022-02-11 18:19 | RAD REPORT ---
EXAM DESCRIPTION: US - Extremity Venous Uni Ltd - 02/11/2022 6:07 pm CLINICAL HISTORY: Pain COMPARISON: None. TECHNIQUE: Real-time sonographic evaluation of the left lower extremity deep venous system was perfo rmed. FINDINGS: Partial compressibility of the left femoral vein at its midportion and distally with some Doppler flow noted and echogenic material within the lumen. Echogenic material is also present within the popliteal vein and which is incompletely compressible. Flow is present the posterior tibial vein is compressible. . IMPRESSION: Eccentric thrombus with partial compressibility in the left femoral vein and popliteal v ein may reflect chronic, rather than acute, deep venous thrombosis.
--- NOTE | 2022-02-11 18:21 | RAD REPORT ---
EXAM DESCRIPTION: US - Lower Extremity Artery Uni Ltd - 02/11/2022 6:07 pm CLINICAL HISTORY: Leg pain COMPARISON: None FINDINGS: Color Doppler, grayscale, and spectral analysis was performed. Biphasic flow is present within the common femoral artery, superficial femoral artery, and popliteal artery. Monophasic flow is present within the dorsalis pedis and posterior tibial artery. IMPRESSION: Monophasic flow within the dorsalis pedis and posterior tibial artery consistent with at least moderate stenoses.
[2022-02-11] MEDS ORDERED: cloNIDine HCL 0.1 MG TAB ONE (19:09)
--- NOTE | 2022-02-11 20:29 | EDPHYS ---
Physician Documentation [facility] Name: Donna Wynn Age: 86 yrs Sex: Female : 1935 Arrival Date: 02/11/2022 Time: 11:23 Bed 16 Private MD: ED Physician Vinny Romero HPI: 02/11 13:27 This 86 yrs old Black Female presents to ER via Wheelchair with complaints of Altered pm1 Mental Status, Foot Pain. 13:27 The patient presents with decreased responsiveness. Onset: The symptoms/episode pm1 began/occurred 3 week(s) ago. Possible causes: started new medication sertraline 3 weeks ago. Associated signs and symptoms: Pertinent positives: cough, Pertinent negatives: dizziness, headache, nausea, vomiting, weakness. Current symptoms: In the emergency department the patient's symptoms are unchanged from the initial presentation. Patient's baseline: Neuro: alert and fully oriented, Motor: no deficits, Ambulation: unable to walk, uses wheelchair, Speech: normal. The patient has not experienced similar symptoms in the past. Seen three weeks ago and prescribed sertraline by her PCP. Patient has appointment with vascular surgeon tomorrow for evaluation and possible stent placement to left leg due to vascular disease. Patient did not go to dialysis treatment today. Last dialysis Thursday. Historical: - Allergies: 12:33 No Known Allergies; bm7 - Home Meds: 12:33 allopurinol 100 mg Oral tab 1 tab once daily [Active]; lisinopril 10 mg Oral tab 1 tab bm7 once daily [Active]; Lasix 40 mg Oral tab 1 tab once daily [Active]; lactulose 20 gram/30 mL Oral soln 15 mL once daily [Active]; Coreg 25 mg Oral tab 1 tab 2 times per day [Active]; clonidine HCl 0.3 mg Oral tab 1 tab three times a day [Active]; bisacodyl 5 mg Oral TbEC 2 tabs once daily [Active]; aspirin 81 mg Oral chew 1 tab once daily [Active]; amlodipine 10 mg tab 1 tab once daily [Active]; - PMHx: 12:33 Hyperlipidemia; Hypertension; ESRD; bm7 - PSHx: 12:33 None; bm7 - Immunization history:: Adult Immunizations up to date, Client reports receiving the 2nd dose of the Covid vaccine, Client reports receiving the 1st dose of the Covid vaccine. - Social history:: Smoking status: Patient denies any tobacco usage or history of. ROS: 13:27 Skin: Negative for injury, rash, and discoloration. pm1 13:27 Constitutional: Negative for fever, chills, and weight loss, Cardiovascular: Negative for chest pain, palpitations, and edema, Abdomen/GI: Negative for abdominal pain, nausea, vomiting, diarrhea, and constipation, Back: Negative for injury and pain. 13:27 MS/extremity: Positive for pain, of the left foot, Negative for decreased range of motion, deformity. 13:27 Neuro: Positive for altered mental status, 3 weeks, Negative for dizziness, headache, numbness, tingling, weakness. 13:27 Respiratory: Positive for cough, Negative for shortness of breath. pm1 13:27 All other systems are negative. Exam: 13:27 Constitutional: This is a well developed, well nourished patient who is awake, alert, pm1 and in no acute distress. Head/Face: Normocephalic, atraumatic. 13:27 Back: No spinal tenderness. No costovertebral tenderness. Full range of motion. Skin: Warm, dry with normal turgor. Normal color with no rashes, no lesions, and no evidence of cellulitis. MS/ Extremity: Pulses equal, no cyanosis. Neurovascular intact. Full, normal range of motion. Right mid foot amputation 13:27 Eyes: Exam is negative for acute changes, Periorbital structures: appear normal, Pupils: no acute changes, Extraocular movements: no acute changes, Conjunctiva: no acute changes. 13:27 ENT: Exam is negative for acute changes, Mouth: no acute changes, Lips: normal, moist, Oral mucosa: normal, pink and intact, moist. 13:27 Neck: Exam negative for acute changes. 13:27 Cardiovascular: Exam negative for acute changes, Rate: normal, Rhythm: regular, Pulses: no pulse deficits are appreciated, Edema: is not appreciated. 13:27 Respiratory: Exam negative for acute changes, respiratory distress, shortness of breath, Breath sounds: are clear throughout. 13:27 Abdomen/GI: Exam negative for acute changes, Inspection: abdomen appears normal, Palpation: abdomen is soft and non-tender, in all quadrants. 13:27 Neuro: Exam negative for acute changes, Orientation: is normal, Mentation: is normal, Motor: is normal, moves all fours, Sensation: no obvious gross deficits. Vital Signs: 12:30 BP 210 / 108; Pulse 89; Resp 16; Temp 97.8(TE); Pulse Ox 100% on R/A; Weight 60.78 kg bm7 (R); Height 5 ft. 6 in. (167.64 cm); Pain 10/10; 13:30 BP 214 / 162; Pulse 95; Resp 18; Pulse Ox 100% ; em6 15:03 BP 217 / 113; Pulse 108; Resp 21; Pulse Ox 100% on R/A; em6 15:35 BP 174 / 92; Pulse 102; Resp 24; Pulse Ox 100% on R/A; em6 17:00 BP 194 / 82; Pulse 98; Resp 22; Pulse Ox 100% on R/A; jd3 18:00 BP 168 / 91; Pulse 101; Resp 22; Pulse Ox 100% ; em6 19:00 BP 225 / 87; Pulse 104; Resp 22; Pulse Ox 100% on R/A; jb4 20:00 BP 214 / 94; Pulse 100; Resp 19; Pulse Ox 100% ; jb4 21:00 BP 189 / 75; Pulse 75; Resp 20; Weight 45.36 kg (R); jb4 22:00 BP 173 / 73; Pulse 73; Resp 16; Pulse Ox 100% on R/A; jb4 23:00 BP 151 / 70; Pulse 73; Resp 16; Pulse Ox 100% on R/A; jb4 02/12 00:00 BP 142 / 73; Pulse 72; Resp 17; Pulse Ox 100% on R/A; jb4 02/11 21:00 Body Mass Index 16.14 (45.36 kg, 167.64 cm) jb4 02/11 18:00 provider notified of continued high blood pressure em6 MDM: 13:09 Patient medically screened. pm1 19:15 Data reviewed: vital signs, nurses notes, lab test result(s), EKG, radiologic studies, cp CT scan. 19:15 Test interpretation: by ED physician or midlevel provider: ECG. cp 19:25 Physician consultation: Anish Rivera MD regarding consult, patient's condition, left cp message with answering service. 20:30 Physician consultation: Vivienne ESPOSITO was contacted at 20:25, regarding admission, to cp the telemetry unit. 02/11 13:27 Order name: COVID-19 SARS RT PCR (Document "Date of Onset" if Symptomatic) pm1 02/11 13:27 Order name: Flu pm1 02/11 13:27 Order name: Basic Metabolic Panel pm1 02/11 13:27 Order name: CBC with Diff pm1 02/11 13:27 Order name: LFT's pm1 02/11 13:27 Order name: PT-INR pm1 02/11 14:02 Order name: SARS RAPID em6 02/11 14:53 Order name: Protime (+INR); Complete Time: 15:48 EDMS 02/11 14:57 Order name: CBC with Automated Diff; Complete Time: 15:48 EDMS 02/11 15:29 Order name: Manual Differential; Complete Time: 15:48 EDMS 02/11 15:30 Order name: Renal Panel; Complete Time: 15:48 EDMS 02/11 15:34 Order name: SARS-COV-2 Antigen Rapid; Complete Time: 15:48 EDMS 02/11 15:48 Order name: Influenza Screen (A ; Complete Time: 15:48 EDMS 02/12 05:36 Order name: CBC with Automated Diff EDMS 02/11 13:27 Order name: Extremity Venous Uni Ltd pm1 02/11 13:27 Order name: Lower Extremity Artery Uni Ltd pm1 02/11 13:27 Order name: CT Head Brain wo Cont pm1 02/11 14:16 Order name: CT; Complete Time: 14:19 EDMS 02/11 18:20 Order name: US; Complete Time: 19:09 EDMS 02/11 18:22 Order name: US; Complete Time: 19:09 EDMS 02/12 05:53 Order name: Basic Metabolic Panel EDMS 02/12 05:53 Order name: Phosphorus EDMS 02/12 05:53 Order name: Magnesium EDMS 02/12 09:26 Order name: RAD EDMS 02/12 09:30 Order name: NM EDMS 02/11 13:27 Order name: EKG; Complete Time: 22:27 pm1 02/11 13:27 Order name: Cardiac monitoring; Complete Time: 13:53 pm1 02/11 13:27 Order name: EKG - Nurse/Tech; Complete Time: 13:53 pm1 02/11 13:27 Order name: IV Saline Lock; Complete Time: 14:36 pm1 02/11 13:27 Order name: Labs collected and sent; Complete Time: 14:36 pm1 EC:55 Rate is 100 beats/min. Rhythm is regular, Normal Sinus Rhythm with Occasional PVCs, pm1 PACs. QRS [place] is Normal. No Q waves. T waves are Normal. No ST changes noted. Clinical impression: Sinus rhythm with occasional PVC and PAC. Left anterior fascicular block. Left ventricular hypertrophy. Abnormal EKG. Administered Medications: 02:38 Drug: Trandate (labetalol) 20 mg Route: IV; Rate: calculated rate; Site: right forearm; jb4 02:40 Follow up: IV Status: Completed infusion; IV Intake: 4ml jb4 14:50 Drug: hydrALAZINE 10 mg Route: IVP; Site: right wrist; em6 15:30 Follow up: Response: No adverse reaction jd3 19:04 Drug: cloNIDine 0.3 mg Route: PO; jd3 20:33 Drug: Eliquis (apixaban) 2.5 mg Route: PO; jb4 Disposition: 02/13 00:15 Co-signature as Attending Physician, Vinny Romero MD. 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 disease, or end stage renal disease Forms: - Medication Reconciliation Form cp - SBAR form cp Signatures: Dispatcher [employer] EDMS Vinny Romero MD MD rn Page, Corey, PA PA cp Garcia, Cindy, RN RN cg Emanuel Griffith, LAURENT SUPERVISOR INTERMEDIATES pm1 Tien Roper RN RN jb4 Osmany Lyn RN RN Fabiola Schwarz RN RN bm7 Maribel Collins RN RN em6 Corrections: (The following items were deleted from the chart) 02/11 17:42 13:27 Constitutional: Negative for fever, chills, and weight loss, Cardiovascular: pm1 Negative for chest pain, palpitations, and edema, Respiratory: Negative for shortness of breath, cough, wheezing, and pleuritic chest pain, Abdomen/GI: Negative for abdominal pain, nausea, vomiting, diarrhea, and constipation, Back: Negative for injury and pain, pm1 20:57 20:28 Telemetry/MedSurg (Inpatient) cp cg 20:57 20:28 cp cg 22:37 22:26 Chest Single View+[id number].[email or web address] ordered. EDMS EDMS 02/12 06:08 06:07 Physician consultation: Anish Rivera MD cp cp
--- NOTE | 2022-02-11 20:29 | ER ---
Nurse's Notes [facility] Name: Donna Wynn Age: 86 yrs Sex: Female : 1935 Arrival Date: 02/11/2022 Time: 11:23 Bed 16 Private MD: Diagnosis: Acute embolism and thrombosis of other specified deep vein of left lower extremity;Hypertensive heart and chronic kidney disease with heart failure and with stage 5 chronic kidney disease, or end stage renal disease Presentation: 02/11 12:30 Chief complaint: Patient's son or daughter states: She started complaining of severe bm7 pain to both of her feet. She is scheduled to have vein surgery on her legs tomorrow. Her feet are hurting so bad she could not go to dialysis. She has been very confused as well. Coronavirus screen: At this time, the client does not indicate any symptoms associated with coronavirus-19. Ebola Screen: No symptoms or risks identified at this time. Initial Sepsis Screen: Does the patient meet any 2 criteria? No. Patient's initial sepsis screen is negative. Does the patient have a suspected source of infection? No. Patient's initial sepsis screen is negative. Risk Assessment: Do you want to hurt yourself or someone else? Patient reports no desire to harm self or others. Onset of symptoms was February 10, 2022. 12:30 Method Of Arrival: Wheelchair bm7 12:30 Acuity: TRUDI 3 bm7 Triage Assessment: 12:34 General: Appears in no apparent distress. uncomfortable, slender, well groomed, bm7 Behavior is calm, cooperative. Pain: Complains of pain in right foot and left foot Pain does not radiate. EENT: No deficits noted. No signs and/or symptoms were reported regarding the EENT system. Neuro: Level of Consciousness is awake, alert, obeys commands, confused, Oriented to person, place, Reports weakness in right foot and left foot. Cardiovascular: No deficits noted. Respiratory: No deficits noted. GI: No deficits noted. No signs and/or symptoms were reported involving the gastrointestinal system. : No deficits noted. No signs and/or symptoms were reported regarding the genitourinary system. Derm: No deficits noted. No signs and/or symptoms reported regarding the dermatologic system. Musculoskeletal: Reports weakness in right foot and left foot pain in right foot and left foot. 12:36 Cardiovascular: Dialysis shunt: in the anterior aspect of right upper chest. bm7 Historical: - Allergies: 12:33 No Known Allergies; bm7 - Home Meds: 12:33 allopurinol 100 mg Oral tab 1 tab once daily [Active]; lisinopril 10 mg Oral tab 1 tab bm7 once daily [Active]; Lasix 40 mg Oral tab 1 tab once daily [Active]; lactulose 20 gram/30 mL Oral soln 15 mL once daily [Active]; Coreg 25 mg Oral tab 1 tab 2 times per day [Active]; clonidine HCl 0.3 mg Oral tab 1 tab three times a day [Active]; bisacodyl 5 mg Oral TbEC 2 tabs once daily [Active]; aspirin 81 mg Oral chew 1 tab once daily [Active]; amlodipine 10 mg tab 1 tab once daily [Active]; - PMHx: 12:33 Hyperlipidemia; Hypertension; ESRD; bm7 - PSHx: 12:33 None; bm7 - Immunization history:: Adult Immunizations up to date, Client reports receiving the 2nd dose of the Covid vaccine, Client reports receiving the 1st dose of the Covid vaccine. - Social history:: Smoking status: Patient denies any tobacco usage or history of. Screenin:35 Abuse screen: Denies threats or abuse. Nutritional screening: No deficits noted. em6 Tuberculosis screening: No symptoms or risk factors identified. 15:04 Fall Risk No fall in past 12 months (0 pts). No secondary diagnosis (0 pts). IV access em6 (20 points). Ambulatory Aid- None/Bed Rest/Nurse Assist (0 pts). Gait- Normal/Bed Rest/Wheelchair (0 pts) Mental Status- Oriented to own ability (0 pts). Total Wong Fall Scale indicates. Assessment: 12:35 General: Appears in no apparent distress. comfortable, Behavior is calm, cooperative. em6 Pain: Complains of pain in right foot and left foot Pain does not radiate. Pain currently is 8 out of 10 on a pain scale. Quality of pain is described as sharp. 12:35 Neuro: Adams Agitation-Sedation Scale (RASS): 0 - Alert and Calm Level of em6 Consciousness is awake, alert, obeys commands, Oriented to person, place, time, situation. Cardiovascular: Heart tones present Patient's skin is warm and dry. Rhythm is sinus rhythm. Respiratory: Airway is patent Respiratory effort is even, unlabored, Respiratory pattern is regular, symmetrical, Breath sounds are clear bilaterally. GI: Abdomen is non-distended, Abd is soft and non tender X 4 quads. : No signs and/or symptoms were reported regarding the genitourinary system. EENT: No signs and/or symptoms were reported regarding the EENT system. Derm: No signs and/or symptoms reported regarding the dermatologic system. Musculoskeletal: Amputation of right foot. 13:35 Reassessment: Patient appears in no apparent distress at this time. No changes from em6 previously documented assessment. Patient and/or family updated on plan of care and expected duration. Pain level reassessed. Patient is alert, oriented x 3, equal unlabored respirations, skin warm/dry/pink. 14:00 Reassessment: notified provider of high blood pressure. new orders given. . em6 14:35 Reassessment: Patient appears in no apparent distress at this time. No changes from em6 previously documented assessment. Patient and/or family updated on plan of care and expected duration. Pain level reassessed. Patient is alert, oriented x 3, equal unlabored respirations, skin warm/dry/pink. 15:35 Reassessment: Patient appears in no apparent distress at this time. No changes from jd3 previously documented assessment. Patient and/or family updated on plan of care and expected duration. Pain level reassessed. Patient is alert, oriented x 3, equal unlabored respirations, skin warm/dry/pink. 16:35 Reassessment: Patient appears in no apparent distress at this time. No changes from jd3 previously documented assessment. Patient and/or family updated on plan of care and expected duration. Pain level reassessed. Patient is alert, oriented x 3, equal unlabored respirations, skin warm/dry/pink. 17:07 Reassessment: Liz [phone]. family to call with updated information. jd3 17:35 Reassessment: Patient appears in no apparent distress at this time. No changes from jd3 previously documented assessment. Patient and/or family updated on plan of care and expected duration. Pain level reassessed. Patient is alert, oriented x 3, equal unlabored respirations, skin warm/dry/pink. 18:00 Reassessment: ultrasound at bedside. jd3 19:00 Reassessment: Pt is resting in bed with eyes closed, respirations are even and jb4 unlabored with no s/s of pain or distress noted. Family is at the bedside. 20:00 Reassessment: Patient appears in no apparent distress at this time. Patient and/or jb4 family updated on plan of care and expected duration. Pain level reassessed. Patient is alert, oriented x 3, equal unlabored respirations, skin warm/dry/pink. 21:00 Reassessment: Patient appears in no apparent distress at this time. Patient and/or jb4 family updated on plan of care and expected duration. Pain level reassessed. Patient is alert, oriented x 3, equal unlabored respirations, skin warm/dry/pink. 22:00 Reassessment: Patient appears in no apparent distress at this time. Patient and/or jb4 family updated on plan of care and expected duration. Pain level reassessed. Patient is alert, oriented x 3, equal unlabored respirations, skin warm/dry/pink. 23:00 Reassessment: Patient appears in no apparent distress at this time. No changes from jb4 previously documented assessment. Patient is alert, oriented x 3, equal unlabored respirations, skin warm/dry/pink. 02/12 00:00 Reassessment: Patient appears in no apparent distress at this time. No changes from jb4 previously documented assessment. Patient is alert, oriented x 3, equal unlabored respirations, skin warm/dry/pink. Vital Signs: 02/11 12:30 BP 210 / 108; Pulse 89; Resp 16; Temp 97.8(TE); Pulse Ox 100% on R/A; Weight 60.78 kg bm7 (R); Height 5 ft. 6 in. (167.64 cm); Pain 10/10; 13:30 BP 214 / 162; Pulse 95; Resp 18; Pulse Ox 100% ; em6 15:03 BP 217 / 113; Pulse 108; Resp 21; Pulse Ox 100% on R/A; em6 15:35 BP 174 / 92; Pulse 102; Resp 24; Pulse Ox 100% on R/A; em6 17:00 BP 194 / 82; Pulse 98; Resp 22; Pulse Ox 100% on R/A; jd3 18:00 BP 168 / 91; Pulse 101; Resp 22; Pulse Ox 100% ; em6 19:00 BP 225 / 87; Pulse 104; Resp 22; Pulse Ox 100% on R/A; jb4 20:00 BP 214 / 94; Pulse 100; Resp 19; Pulse Ox 100% ; jb4 21:00 BP 189 / 75; Pulse 75; Resp 20; Weight 45.36 kg (R); jb4 22:00 BP 173 / 73; Pulse 73; Resp 16; Pulse Ox 100% on R/A; jb4 23:00 BP 151 / 70; Pulse 73; Resp 16; Pulse Ox 100% on R/A; jb4 02/12 00:00 BP 142 / 73; Pulse 72; Resp 17; Pulse Ox 100% on R/A; jb4 02/11 21:00 Body Mass Index 16.14 (45.36 kg, 167.64 cm) jb4 02/11 18:00 provider notified of continued high blood pressure em6 ED Course: 11:23 Patient arrived in ED. mr 12:33 Triage completed. bm7 12:34 Arm band placed on right wrist. bm7 12:35 Patient has correct armband on for positive identification. Bed in low position. Side em6 rails up X2. Adult w/ patient. traffic monitor specialist on. Pulse ox on. NIBP on. Warm blanket given. 13:07 Patient placed in an exam room, on a stretcher. kb3 13:09 Emanuel Griffith NP is PHCP. pm1 13:09 Vinny Romero MD is Attending Physician. pm1 14:33 Osmany Lyn RN is Primary Nurse. jd3 14:34 Inserted saline lock: 24 gauge in right forearm, using aseptic technique. vg1 17:41 PHCP role handed off by Emanuel Griffith NP cp 17:41 Yuval Mcclure PA is PHCP. cp 20:26 Jose Soriano is Hospitalizing Provider. cp 20:30 role handed off by Maribel Collins RN 20:30 Primary Nurse role handed off by Osmany Lyn RN 02/12 00:00 No provider procedures requiring assistance completed. Patient admitted, IV remains in jb4 place. Administered Medications: 02/11 02:38 Drug: Trandate (labetalol) 20 mg Route: IV; Rate: calculated rate; Site: right forearm; jb4 02:40 Follow up: IV Status: Completed infusion; IV Intake: 4ml jb4 14:50 Drug: hydrALAZINE 10 mg Route: IVP; Site: right wrist; em6 15:30 Follow up: Response: No adverse reaction jd3 19:04 Drug: cloNIDine 0.3 mg Route: PO; jd3 20:33 Drug: Eliquis (apixaban) 2.5 mg Route: PO; jb4 Medication: 14:00 VIS not applicable for this client. em6 Intake: 02:40 IV: 4ml; Total: 4ml. jb4 Outcome: 20:28 Decision to Hospitalize by Provider. cp 02/12 00:00 Admitted to ER Hold. Please see [facility] for further documentation. jb4 Condition: stable Discharge instructions given to patient, family, Instructed on the need for admit, Demonstrated understanding of instructions. 19:22 Patient left the ED. ph Signatures: Lizzy Mccrary mr CameronSteff, RN RN ph Yuval Mcclure PA PA cp Emanuel Griffith, EQUIPMENT OPERATOR WAGE HAND EQUIPMENT OPERATOR WAGE HAND pm1 Tien Roper RN RN jb4 Osmany Lyn RN RN Arpita Forte RN RN vg1 Fabiola Hernandez RN RN bm7 Shaye Alvarado Erika, RN RN em6 Bessy Tee, RN RN kb3 Corrections: (The following items were deleted from the chart) 02/11 13:59 12:35 Pain: Complains of pain in right foot and left foot em6 em6 19:17 18:00 BP 168 / 91; Pulse 101bpm; Resp 22bpm; Pulse Ox 100%; jd3 em6 20:42 20:41 Trandate (labetalol) 20 mg IV at calculated rate in right forearm jb4 jb4
[2022-02-11] MEDS ORDERED: APIXABAN 5 MG TABLET ONE (20:38)
[2022-02-11] MEDS ORDERED: LABETALOL 20 MG/4ML SYRINGE IV ONE (20:38)
--- NOTE | 2022-02-11 22:29 | P.HP ---
Certification for Inpatient Patient admitted to: Inpatient With expected LOS: <2 Midnights Patient will require the following post-hospital care: None Practitioner: I am a practitioner with admitting privileges, knowledge of patient current condition, hospital course, and medical plan of care. Services: Services provided to patient in accordance with Admission requirements found in Title 42 Section 412.3 of the Code of Federal Regulations Patient History Date of Service: 02/11/22 Reason for admission: DVT, ESRD History of Present Illness: Patient is an 86-year-old female with history of ESRD (on HD ,,Thu), hypertension, and chronic anemia who presented to the ED with complaints of bilateral foot pain and altered mental status. Patient's daughter reports that she was acting a confused yesterday and today and has been complaining of severe foot pain. Upon arrival to the ER, she was noted to be very hypertensive at 210/108. Labs significant for WBC 12.2, creatinine 7.77, BUN 48. CT head negative. Extremity venous ultrasound showed Eccentric thrombus with partial compressibility in the left femoral vein and popliteal vein may reflect chronic, rather than acute, deep venous thrombosis. Arterial doppler showed Monophasic flow within the dorsalis pedis and posterior tibial artery consistent with at least moderate stenoses. She was given 20 mg labetalol x2, hydralazine 10 mg x 1, clonidine 0.3x1, and Eliquis 2.5x1. Her wax pattern repairer, Dr. Werner was contacted. Patient is scheduled to have an appointment with [facility] tomorrow, but she was unaware of the clot in her legs. She is not on anticoagulation. She had a procedure done on her left leg a few months ago. She also missed dialysis today (most recent HD on Thursday). She is admitted for further evaluation and treatment. Allergies No Known Allergies Allergy (Verified 06/10/16 11:30) Home medications list reviewed: Yes Home Medications: minoxidiL [Loniten*] 5 mg PO TID 11/11/12 Amlodipine Besylate 10 mg PO DAILY 03/23/14 Aspirin Chewable [Aspirin Chewable*] 81 mg PO DAILY 03/23/14 Carvedilol 25 mg PO DAILY 03/23/14 Cholecalciferol (Vitamin D3) [Vitamin D 2,000 Unit Tab] 2,000 unit PO M,W,F 03/23/14 Clonidine HCl 0.3 mg PO TID 03/23/14 Ferrous Sulfate [Iron] 65 mg PO DAILY 03/23/14 Furosemide [Lasix*] 40 mg PO M,W,F 03/23/14 Lisinopril 10 mg PO DAILY 03/23/14 allopurinoL [Zyloprim*] 1 tab PO DAILY 05/25/14 calcitrioL [Rocaltrol] 1 tab PO 30 MIN BEFORE HS 05/25/14 Cranberry 1,000 mg PO DAILY 01/22/15 Lactulose 20 gm PO PRN PRN 02/12/16 Tamsulosin [Flomax] 0.4 mg PO BEDTIME 06/10/16 - Past Medical/Surgical History Diabetic: No -: HTN -: ANEMIA -: ESRD -: cataract -: hysterectomy Psychosocial/ Personal History: Patient lives at home with her daughter. - Family History Family History: Reviewed- Non-Contributory - Social History Smoking Status: Never smoker Alcohol use: No CD- Drugs: No Caffeine use: Yes Place of Residence: Home Review of Systems Musculoskeletal: Leg Pain Neurological: Confusion Physical Examination - Physical Exam General: Alert, In no apparent distress HEENT: Atraumatic, PERRLA, EOMI, Sclerae nonicteric Neck: Supple, 2+ carotid pulse no bruit, No LAD, Without JVD or thyroid abnormality Respiratory: Clear to auscultation bilaterally, Normal air movement Cardiovascular: Regular rate/rhythm, Normal S1 S2 Gastrointestinal: Normal bowel sounds, No tenderness Musculoskeletal: No tenderness Integumentary: No rashes Neurological: Normal speech, Normal strength at 5/5 x4 extr, Normal tone, Normal affect - Studies Laboratory Data (last 24 hrs) 02/11/22 14:32: PT 9.6, INR 0.88 02/11/22 14:32: WBC 12.20 H, Hgb 10.5 L, Hct 33.3 L, Plt Count 546 H 02/11/22 14:32: Sodium 137, Potassium 4.0, BUN 48 H, Creatinine 7.77 H*, Glucose 106, Phosphorus 4.3 Microbiology Data (last 24 hrs): 02/11/22 14:52 Nasopharnyx Influenza Type A Antigen Screen - Final 02/11/22 14:52 Nasopharnyx Influenza Type B Antigen Screen - Final Assessment and Plan - Problems (Diagnosis) (1) DVT (deep venous thrombosis) Current Visit: Yes Status: Acute Qualifiers: DVT location: lower extremity Affected thrombotic vein of extremity: femoral Chronicity: unspecified Laterality: left Qualified Code(s): I82.412 - Acute embolism and thrombosis of left femoral vein (2) ESRD (end stage renal disease) Current Visit: Yes Status: Chronic (3) Hypertension Current Visit: Yes Status: Chronic Qualifiers: Hypertension type: primary hypertension Qualified Code(s): I10 - Essential (primary) hypertension - Plan -VQ scan ordered for morning -Nephrology consulted for ESRD/HD. Renal diet -Physical therapy consult -Eliquis 2.5 mg BID -BP has been very elevated. Continue home medications. Hydralazine/labetalol PRN. -Monitor and replete electrolytes per protocol -Reconcile and continue home medications -Eliquis for VTE ppx -Full code Discharge Plan: Home Plan to discharge in: 48 Hours - Advance Directives Does patient have a Living Will: No Does patient have a Durable POA for Healthcare: No - Code Status/Comfort Care Code Status Assessed: Yes (Full) Critical Care: No Time Spent Managing Pts Care (In Minutes): 50
[2022-02-12 02:07] VITALS: BMI 21.6
[2022-02-12] MEDS ORDERED: ACETAMINOPHEN 500 MG TAB PO PRN (02:29)
[2022-02-12] MEDS ORDERED: ONDANSETRON 4 MG/2 ML VIAL IV PRN (02:29)
[2022-02-12] MEDS ORDERED: HYDRALAZINE HCL 20 MG/ML VIAL IV ONE (03:52)
[2022-02-12] MEDS ORDERED: HYDRALAZINE HCL 20 MG/ML VIAL ONE (04:04)
[2022-02-12 05:27] LABS: Absolute Lymphocytes (CBC) 1.6 K/uL (0.7-4.9); Hematocrit 29.7 % (36.0-45.0); Lymphocytes % 14.3 % (15.3-44.8); MCV 76.1 fL (80-100); RBC Red Blood Cell Count 3.91 M/uL (3.86-4.86)
[2022-02-12 05:51] LABS: Magnesium 2.6 mg/dL (1.8-2.4); Phosphorus 4.6 mg/dL (2.5-4.9); Potassium 3.7 mmol/L (3.5-5.1)
[2022-02-12] MEDS ORDERED: APIXABAN 5 MG TABLET ONE (08:32)
[2022-02-12] MEDS ORDERED: APIXABAN 2.5 MG TABLET PO SCH (09:00)
--- NOTE | 2022-02-12 09:25 | RAD REPORT ---
EXAM DESCRIPTION: RAD - Chest Single View - 02/12/2022 9:12 am CLINICAL HISTORY: POST VQ SCAN COMPARISON: Chest Pa And Lat (2 Views) dated 07/30/2016; CHEST SINGLE VIEW dated 11/10/2012 FINDINGS: Lines: Right IJ approach dialysis catheter with tip overlying the SVC. Lungs: No evidence of edema or pneumonia. Pleural: No significant pleural effusions or pneumothorax. Cardiac: The heart size is within normal limits. Mediastinum: Within normal limits. Bones: No acute fractures. Other: Peripheral vascular calcifications including left upper extremity vascular stent. IMPRESSION: No acute cardiopulmonary disease.
--- NOTE | 2022-02-12 09:29 | RAD REPORT ---
EXAM DESCRIPTION: NM - Vent Perfusion VQ Scan - 02/12/2022 8:41 am CLINICAL HISTORY: Left leg DVT COMPARISON: Chest radiograph 02/12/2022 TECHNIQUE: The patient was administered approximately 20 mCi Xenon 133 gas with posterior projection inspiration, equilibrium, and washout views obtained. The patient was then administered approximatel y 6.6 mCi Tc-99m SC labeled RBCs followed by standard 8 view protocol. FINDINGS: There is good distribution of the Xenon with no ventilation defects identified. No signifi cant air-trapping seen. Segmental defect in the right lung on perfusion without ventilation defect. Subsegmental defect in th e left lung on perfusion without ventilation defect. IMPRESSION: Intermediate probability for pulmonary embolism using PIOPED II criteria.
[2022-02-12] MEDS ORDERED: LACTULOSE 20 GM/30 ML UCUP PO PRN ×2 (10:00→10:59)
[2022-02-12] MEDS ORDERED: lisinopriL 10 MG TAB ONE (12:04)
--- NOTE | 2022-02-12 12:49 | EKG ---
Test Date: 2022-02-11 Test Time: 13:41:50 Sales Clerk Food: MEASUREMENT RESULTS: Intervals: Rate: 103 WV: 156 QRSD: 82 QT: 336 QTc: 440 [place]: P: 62 WV: 156 QRS: -51 T: 94 INTERPRETIVE STATEMENTS: Sinus tachycardia with occasional premature ventricular complexes Left anterior fascicular block Left ventricular hypertrophy with repolarization abnormality Cannot rule out Septal infarct, age undetermined Abnormal ECG Compared to ECG 11/22/2016 13:58:15 Ventricular premature complex(es) now present Left anterior fascicular block now present Early repolarization now present Sinus rhythm no longer present Sinus arrhythmia no longer present Left-axis deviation no longer present Myocardial infarct finding still present Electronically Signed On 02-12-22 12:48:49 CDT by Joce Lang
--- NOTE | 2022-02-12 12:49 | EKG ---
Test Date: 2022-02-11 Test Time: 13:42:49 Oven Baker: MEASUREMENT RESULTS: Intervals: Rate: 100 MO: 158 QRSD: 82 QT: 334 QTc: 430 [place]: P: 85 MO: 158 QRS: -51 T: 95 INTERPRETIVE STATEMENTS: Sinus rhythm with occasional premature atrial complexes Pulmonary disease pattern Left anterior fascicular block Left ventricular hypertrophy with repolarization abnormality Cannot rule out Septal infarct, age undetermined Abnormal ECG Compared to ECG 11/22/2016 13:58:15 Atrial premature complex(es) now present Left anterior fascicular block now present Early repolarization now present Sinus arrhythmia no longer present Left-axis deviation no longer present Myocardial infarct finding still present Electronically Signed On 02-12-22 12:48:45 CDT by Joce Lang
--- NOTE | 2022-02-12 14:13 | CON ---
Date of Consultation: 02/12/2022 Reason For Consultation: Elevated BUN and creatinine, fluid management. History Of Present Illness: This is a pleasant 86-year-old female, well known to me from dialysis wi th significant past medical history of PAD, hypertension, hyperlipidemia, end-stage renal disease, on hemodialysis TTS through right IJ PermCath, patient was in her regular state of health. According t o the family for the last few days, started being confused, acting abnormal, for that reason brought to the hospital and patient had been complaining from pain in the leg. Upon arrival to the hospital, patient was with altered mental status. Doppler for the lower extremity was done and it was negativ e for threatened ischemia but it showed PAD and also showed chronic DVT. The patient was admitted, s tarted on anticoagulation. Past Medical History: Include: 1.Hypertension. 2.Anemia. 3.End-stage renal disease, on hemodialysis TTS, missed dialysis yesterday. 4.Hyperlipidemia. Past Surgical History: Include: 1.Hysterectomy. 2.Cataract surgery. 3.PermCath placement. Family History: Positive for hypertension. Social History: Lives with family. Denies smoking. Denies drinking. Denies drugs abuse. Review of Systems: Head and Neck: No red eye. No ear pain. GI: No nausea, no vomiting. : No polyuria. No dysuria. No hematuria. CIRCULAR GANG SAW OPERATOR: No vaginal discharge. Respiratory: No shortness of breath. Lying flat. Cardiovascular: No chest pain. Endocrine: No polydipsia. Skin: No rash. Neuro: Has altered mental status. Musculoskeletal: Has leg pain. Physical Examination: Vital Signs: When I saw the patient, blood pressure 179/60, pulse of 88. Chest: Clear to auscultation. Heart: S1, S2. Systolic murmur. Abdomen: Soft, nontender. Extremities: No edema. Right MTA. Pulse intact in the lower extremity and feet is warm. Neuro: Alert, no focality. Oriented x3. Laboratory Data: WBC 11, H and H 9.5/29.7, platelets 294. Sodium 137, potassium 3.7, bicarb 22, BUN 54, creatinine 8.5, calcium is 11, phos 4.6, magnesium of 2.6. Albumin 3.1. Current Medications: Include: Flomax. Eliquis. Amlodipine 10 mg. Carvedilol 25. Lisinopril 10. Lasix. Assessment And Plan: 1.End-stage renal disease, normal volume to the dry side. I am going to do dialysis today. Patient is going to be dialyzed on high potassium bath. We are not going to challenge the patient. Patient looked to me on the dry side. 2.Hypokalemia. Patient is going to be dialyzed on high potassium bath. 3.Hypercalcemia. I will dialyze the patient on low calcium bath and I am going to go ahead and repe at PTH and vitamin D, possible it is secondary to immobilization/possible secondary to dehydration. 4.Secondary hyperparathyroid. Keep holding the vitamin D supplement. 5.Hypertension, not controlled. We will resume home blood pressure medications. We will follow up blood pressure after dialysis. 6.PAD. Agree with Jeffrey. We will resume aspirin and we will follow up. 7.Chronic deep venous thrombosis. No need for supplement. 8.Early dementia. Patient is going to need evaluation as outpatient. FANI Voice ID: [id number] Report ID: [id number]
--- NOTE | 2022-02-12 14:59 | P.DS ---
Admission Date: 02/11/22 Discharge Date: 02/12/22 Disposition: ROUTINE DISCHARGE Discharge Condition: FAIR Reason for Admission: DVT, ESRD - Problems (1) DVT (deep venous thrombosis) Current Visit: Yes Status: Acute Qualifiers: DVT location: lower extremity Affected thrombotic vein of extremity: femoral Chronicity: unspecified Laterality: left Qualified Code(s): I82.412 - Acute embolism and thrombosis of left femoral vein (2) ESRD (end stage renal disease) Current Visit: Yes Status: Chronic (3) Hypertension Current Visit: Yes Status: Chronic Qualifiers: Hypertension type: primary hypertension Qualified Code(s): I10 - Essential (primary) hypertension Brief History of Present Illness: Patient is an 86-year-old female with history of ESRD (on HD ,,Thu), hypertension, and chronic anemia who presented to the ED with complaints of bilateral foot pain and altered mental status. Patient's daughter reports that she was acting a confused and was complaining of severe foot pain. Upon arrival to the ER, she was noted to be very hypertensive at 210/108. Labs significant for WBC 12.2, creatinine 7.77, BUN 48. CT head negative. Extremity venous ultrasound showed Eccentric thrombus with partial compressibility in the left femoral vein and popliteal vein may reflect chronic, rather than acute, deep venous thrombosis. Arterial doppler showed Monophasic flow within the dorsalis pedis and posterior tibial artery consistent with at least moderate stenoses. She was given 20 mg labetalol x2, hydralazine 10 mg x 1, clonidine 0.3x1, and Eliquis 2.5x1. Her doctor of nursing practice, Dr. Werner was contacted. Patient is scheduled to have an appointment with [facility] but she was unaware of the clot in her legs. She is not on anticoagulation. She had a procedure done on her left leg a few months ago. She also missed dialysis (most recent HD on Thursday). She was admitted for further evaluation and treatment Hospital Course: Placed under observation on the medical floor and started on Eliquis. Nephrology was consulted and patient underwent hemodialysis. VQ scan done showed intermediate probability for pulmonary embolism. Patient being treated for thromboembolism and PAD with renally dosed Eliquis. She is clinically stable for discharge. Vital Signs/Physical Exam: Temp Pulse Resp BP Pulse Ox 88 22 H 172/77 H 100 02/12/22 12:00 02/12/22 04:00 02/12/22 12:00 02/12/22 04:00 General: Alert, In no apparent distress, Oriented x3 Neck: JVD not distended Respiratory: Clear to auscultation bilaterally, Normal air movement Cardiovascular: No edema, Regular rate/rhythm, Normal S1 S2 Gastrointestinal: Soft and benign, Non-distended, No tenderness Musculoskeletal: No swelling Integumentary: No rashes Neurological: Normal strength at 5/5 x4 extr Laboratory Data at Discharge: WBC 11.00 K/uL (4.3-10.9) H 02/12/22 04:55 Hgb 9.5 g/dL (12.0-15.0) L 02/12/22 04:55 Hct 29.7 % (36.0-45.0) L 02/12/22 04:55 Plt Count 494 K/uL (152-406) H 02/12/22 04:55 PT 9.6 SECONDS (9.5-12.5) 02/11/22 14:32 INR 0.88 02/11/22 14:32 Sodium 137 mmol/L (136-145) 02/12/22 04:55 Potassium 3.7 mmol/L (3.5-5.1) 02/12/22 04:55 BUN 54 mg/dL (7-18) H 02/12/22 04:55 Creatinine 8.56 mg/dL (0.55-1.3) H* 02/12/22 04:55 Glucose 92 mg/dL (74-106) 02/12/22 04:55 Phosphorus 4.6 mg/dL (2.5-4.9) 02/12/22 04:55 Magnesium 2.6 mg/dL (1.8-2.4) H 02/12/22 04:55 Total Bilirubin Cancelled 02/11/22 13:27 AST Cancelled 02/11/22 13:27 ALT Cancelled 02/11/22 13:27 Alkaline Phosphatase Cancelled 02/11/22 13:27 Home Medications: minoxidiL [Loniten*] 5 mg PO TID 11/11/12 Amlodipine Besylate 10 mg PO DAILY 03/23/14 Aspirin Chewable [Aspirin Chewable*] 81 mg PO DAILY 03/23/14 Carvedilol 25 mg PO DAILY 03/23/14 Cholecalciferol (Vitamin D3) [Vitamin D 2,000 Unit Tab] 2,000 unit PO M,W,F 03/23/14 Clonidine HCl 0.3 mg PO TID 03/23/14 Ferrous Sulfate [Iron] 65 mg PO DAILY 03/23/14 Furosemide [Lasix*] 40 mg PO M,W,F 03/23/14 Lisinopril 10 mg PO DAILY 03/23/14 allopurinoL [Zyloprim*] 1 tab PO DAILY 05/25/14 calcitrioL [Rocaltrol] 1 tab PO 30 MIN BEFORE HS 05/25/14 Cranberry 1,000 mg PO DAILY 01/22/15 Lactulose 20 gm PO PRN PRN 02/12/16 Tamsulosin [Flomax*] 0.4 mg PO BEDTIME 06/10/16 Apixaban [Eliquis *] 2.5 mg PO BID #60 tab 02/12/22 New Medications: Apixaban [Eliquis *] 2.5 mg PO BID #60 tab Diet: Renal Activity: Fall precautions Followup: Anish Rivera MD [ACTIVE - CAN ADMIT] - 1-2 Weeks NONE,NONE [Primary Care Provider] - 1-2 Weeks
[2022-02-12] MEDS ORDERED: ONDANSETRON 4 MG/2 ML VIAL ONE (16:20)
[2022-02-12 20:27] VITALS: TEMP 97.8; O2SAT 100
[2022-02-12] MEDS ORDERED: CALCITROL 0.25 MCG CAP PO SCH (20:30)
[2022-02-12 20:53] VITALS: BP 142/73
[2022-02-12] MEDS ORDERED: TAMSULOSIN 0.4 MG SR CAP PO SCH (21:00)
[2022-02-13] MEDS ORDERED: carvediloL 25 MG TAB PO SCH (09:00)
[2022-02-13] MEDS ORDERED: ASPIRIN 81 MG CHEWABLE TABLET PO SCH (09:00)
[2022-02-13] MEDS ORDERED: allopurinoL 100 MG TAB PO SCH (09:00)
[2022-02-13] MEDS ORDERED: AMLODIPINE 10 MG TAB PO SCH (09:00)
[2022-02-13] MEDS ORDERED: HOME MED 1 EA UNK (Cranberry [Cranberry] 500 MG Capsule) PO SCH (09:00)
[2022-02-13] MEDS ORDERED: lisinopriL 10 MG TAB PO SCH (09:00)
[2022-02-13] MEDS ORDERED: CRANBERRY FRUIT EXTRACT 200 MG CAP PO SCH (09:00)
[2022-02-14] MEDS ORDERED: FUROSEMIDE 40 MG TABLET PO SCH (09:00)
== END 2022-02-12 19:15 | disposition home or self-care (01) | DRG 299 ==
LOC: ER 11:20 → ERHOLD 22:22
PROVIDERS: ADMIT Internal Medicine; ATTEND Internal Medicine
DX: I82.412 Acute embolism and thrombosis of left femoral vein (principal); N18.6 End stage renal disease; I26.99 Other pulmonary embolism without acute cor pulmonale; I13.2 Hypertensive heart and chronic kidney disease with heart failure and with stage 5 chronic kidney disease, or end stage renal disease; I50.9 Heart failure, unspecified; D63.1 Anemia in chronic kidney disease; E78.5 Hyperlipidemia, unspecified; Z99.2 Dependence on renal dialysis; Z91.15 Patient's noncompliance with renal dialysis; Z79.82 Long term (current) use of aspirin; Z79.899 Other long term (current) drug therapy; Z90.710 Acquired absence of both cervix and uterus; Z20.822 Contact with and (suspected) exposure to COVID-19
CPT/HCPCS: 36415; 70450; 71045; 78582; 80048; 80069; 83735; 84100; 85025; 85610; 87804; 87811; 93005; 93926; 93971; 99285; A9540; A9558; J0360; J1644; J2405